=== PATIENT | female | born 1935 | race Caucasian/White ===

== ENCOUNTER → 2016-10-12 | Outpatient (CLI) | payer OTHER ==
[~2016-10-12] MED LIST: ALENSOL; Calcium PO; FOLI1TAB6; FOLI1TAB6 PO; FOLIPOW28; Fish Oil; HYDR500T13; IBUP600T27; METH2.5T3 IJ; METHOTREXATE; METHPOW77; MULTI VIT
[2016-10-12 16:20] LABS: Basophils # (auto) 0 uL; Basophils % (auto) 0.5 % (0.0-2.0); Eosinophils # (auto) 0.3 uL; Eosinophils % (auto) 3.1 % (0.0-7.0); Hematocrit 40.4 % (36.0-46.0); Hemoglobin 12.9 g/dL (12.2-16.2); Lymphocytes # (auto) 2.1 uL; Lymphocytes % (auto) 21.3 % (10.0-50.0); Mean Corpuscular Volume 84.6 fL (80.0-100.0); Monocytes # (auto) 0.9 uL; Monocytes % (auto) 9.2 % (0.0-12.0); Neutrophils # (auto) 6.4 uL; Neutrophils % (auto) 65.9 % (37.0-80.0); Platelet Count (auto) 267 10^3/uL (140-450); Red Cell Distribution Width 14.4 % (11.6-16.0); White Blood Cell 9.7 10^3/uL (4.4-10.8)
== END | disposition home or self-care (01) ==
LOC: LAB 15:49
DX: Z96.649 Presence of unspecified artificial hip joint (principal)
CPT/HCPCS: 36415; 85025; 85049; 85652; 86141

== ENCOUNTER → 2016-11-24 | Outpatient (CLI) | payer OTHER ==
[~2016-11-24] MED LIST changes: +CIPR-217 PO; -METH2.5T3 IJ; +METH2.5T3 OR
[2016-11-24 16:56] LABS: Basophils # (auto) 0 uL; Basophils % (auto) 0.6 % (0.0-2.0); Eosinophils # (auto) 0.2 uL; Eosinophils % (auto) 3.1 % (0.0-7.0); Hematocrit 43.1 % (36.0-46.0); Hemoglobin 14.2 g/dL (12.2-16.2); Lymphocytes # (auto) 2.3 uL; Lymphocytes % (auto) 36.3 % (10.0-50.0); Mean Corpuscular Hemoglobin 27.6 pg (28.0-32.0); Mean Corpuscular Volume 83.6 fL (80.0-100.0); Mean Platelet Volume 8.3 fL (7.4-10.4); Monocytes # (auto) 0.4 uL; Monocytes % (auto) 5.8 % (0.0-12.0); Neutrophils # (auto) 3.4 uL; Neutrophils % (auto) 54.2 % (37.0-80.0); Platelet Count (auto) 207 10^3/uL (140-450); Red Cell Distribution Width 15.4 % (11.6-16.0); White Blood Cell 6.3 10^3/uL (4.4-10.8)
[2016-11-24 17:06] LABS: Albumin 3.7 g/dL (3.4-5.0); Bilirubin, Total 0.5 mg/dL (0.2-1.0); Calcium 8.6 mg/dL (8.5-10.1); Total Protein 7.6 g/dL (6.4-8.2)
[2016-11-24 17:11] LABS: INR 1.05 (0.9-1.15); Partial Thromboplastin Time 26.8 sec (22.64-33.71); Prothrombin Time 10.8 sec (9.37-12.3)
== END | disposition home or self-care (01) ==
LOC: LAB 13:40
PROVIDERS: ATTEND Surgery
DX: Z01.818 Encounter for other preprocedural examination (principal); R79.1 Abnormal coagulation profile
CPT/HCPCS: 36415; 80053; 85025; 85610; 85730

== ENCOUNTER → 2016-11-27 | Day surgery (SDC) | payer OTHER ==
[~2016-11-27] VITALS: Ht 165.1 cm; Wt 48.5 kg
[~2016-11-27] MED LIST changes: -ALENSOL; +BUPIVACAINE HCL 50 ML ONE; +BUPIVACAINE W/ EPINEPH 0.5% MPF 30ML VIAL IJ ONE; -Calcium PO; -FOLI1TAB6; -FOLIPOW28; -Fish Oil; -HYDR500T13; +HYDROmorphone HCL 2 MG/ML VL IV ONE; -IBUP600T27; +KETOROLAC TROMETH 30 MG/ML 1ML VIAL IV ONE; +LIDOCAINE 1% HCL (LOCAL ANESTH.) INJ 20ML MDV ONE; +LIDOCAINE W/ EPINEPHRINE 1 % INJ 30ML ONE; -METHOTREXATE; -METHPOW77; +MIDAZOLAM HCL 1MG/1ML-2 ML VIAL ONE; -MULTI VIT; +ONDANSETRON HCL 4 MG/2 ML VIAL ONE; +PROMETHAZINE HCL 25 MG/ML 1ML IM ONE; +PROPOFOL 10 MG/ML 20 ML IV ONE; +fentaNYL CITRATE 100 MCG/2 ML VL ONE
[2016-11-27 08:51] VITALS: BP 127/70
== END | disposition home or self-care (01) ==
LOC: SUR 05:58
PROVIDERS: ATTEND Surgery
DX: T84.090A Other mechanical complication of internal right hip prosthesis, initial encounter (principal); M06.9 Rheumatoid arthritis, unspecified; J44.9 Chronic obstructive pulmonary disease, unspecified
CPT/HCPCS: 36590; J2001; J2250; J2405; J2704; J3010; J3490

== ENCOUNTER → 2017-02-09 | Outpatient (CLI) | payer OTHER ==
[~2017-02-09] MED LIST changes: -BUPIVACAINE HCL 50 ML ONE; -BUPIVACAINE W/ EPINEPH 0.5% MPF 30ML VIAL IJ ONE; -HYDROmorphone HCL 2 MG/ML VL IV ONE; -KETOROLAC TROMETH 30 MG/ML 1ML VIAL IV ONE; -LIDOCAINE 1% HCL (LOCAL ANESTH.) INJ 20ML MDV ONE; -LIDOCAINE W/ EPINEPHRINE 1 % INJ 30ML ONE; -MIDAZOLAM HCL 1MG/1ML-2 ML VIAL ONE; -ONDANSETRON HCL 4 MG/2 ML VIAL ONE; -PROMETHAZINE HCL 25 MG/ML 1ML IM ONE; -PROPOFOL 10 MG/ML 20 ML IV ONE; -fentaNYL CITRATE 100 MCG/2 ML VL ONE
== END | disposition home or self-care (01) ==
LOC: LAB 10:33
PROVIDERS: ATTEND Internal Medicine
DX: Z12.11 Encounter for screening for malignant neoplasm of colon (principal)
CPT/HCPCS: 82270

== ENCOUNTER → 2017-04-16 | Outpatient (CLI) | payer OTHER ==
[2017-04-16 11:43] LABS: Basophils # (auto) 0 uL; Basophils % (auto) 0.7 % (0.0-2.0); CONDITION Y; Eosinophils # (auto) 0.4 uL; Eosinophils % (auto) 5.4 % (0.0-7.0); Hematocrit 42.6 % (36.0-46.0); Hemoglobin 14.2 g/dL (12.2-16.2); Lymphocytes # (auto) 1.7 uL; Lymphocytes % (auto) 25.5 % (10.0-50.0); Mean Corpuscular Hemoglobin 31.9 pg (28.0-32.0); Mean Corpuscular Hgb Conc. 33.3 g/dL (32.0-36.0); Mean Corpuscular Volume 95.9 fL (80.0-100.0); Mean Platelet Volume 7.2 fL (7.4-10.4); Monocytes # (auto) 0.9 uL; Monocytes % (auto) 13.8 % (0.0-12.0); Neutrophils # (auto) 3.6 uL; Neutrophils % (auto) 54.6 % (37.0-80.0); Platelet Count (auto) 206 10^3/uL (140-450); Red Cell Distribution Width 16.1 % (11.6-16.0); White Blood Cell 6.6 10^3/uL (4.4-10.8)
[2017-04-16 12:06] LABS: Albumin 3.7 g/dL (3.4-5.0); BUN/Creatinine Ratio 20.8; Bilirubin, Total 0.7 mg/dL (0.2-1.0); Calcium 9.2 mg/dL (8.5-10.1); Potassium 4.2 mmol/L (3.5-5.1)
== END | disposition home or self-care (01) ==
LOC: LAB 11:25
DX: M06.9 Rheumatoid arthritis, unspecified (principal); M25.50 Pain in unspecified joint; D64.9 Anemia, unspecified; I10 Essential (primary) hypertension
CPT/HCPCS: 36415; 80053; 85025; 85652; 86141

== ENCOUNTER → 2017-07-14 | Outpatient (CLI) | payer OTHER ==
[2017-07-14 12:07] LABS: Basophils # (auto) 0 uL; Basophils % (auto) 0.3 % (0.0-2.0); Eosinophils # (auto) 0.3 uL; Eosinophils % (auto) 3.8 % (0.0-7.0); Hematocrit 39.1 % (36.0-46.0); Hemoglobin 13.4 g/dL (12.2-16.2); Lymphocytes # (auto) 1.8 uL; Lymphocytes % (auto) 20.6 % (10.0-50.0); Mean Corpuscular Hemoglobin 30.7 pg (28.0-32.0); Mean Corpuscular Hgb Conc. 34.3 g/dL (32.0-36.0); Mean Corpuscular Volume 89.3 fL (80.0-100.0); Mean Platelet Volume 6.1 fL (6.9-10.8); Monocytes # (auto) 0.6 uL; Monocytes % (auto) 6.7 % (0.0-12.0); Neutrophils # (auto) 5.9 uL; Neutrophils % (auto) 68.6 % (37.0-80.0); Nucleated Red Blood Cells % 0.1 %; Platelet Count (auto) 304 10^3/uL (140-450); Red Cell Distribution Width 14.8 % (11.8-14.3); White Blood Cell 8.6 10^3/uL (4.4-10.8)
[2017-07-14 12:34] LABS: Albumin 2.9 g/dL (3.4-5.0); Bilirubin, Total 0.5 mg/dL (0.2-1.0); Calcium 8.2 mg/dL (8.5-10.1); Potassium 4.3 mmol/L (3.5-5.1); Total Protein 7.7 g/dL (6.4-8.2)
== END | disposition home or self-care (01) ==
LOC: LAB 11:31
DX: I10 Essential (primary) hypertension (principal); D64.9 Anemia, unspecified; M06.9 Rheumatoid arthritis, unspecified; M25.50 Pain in unspecified joint; E78.00 Pure hypercholesterolemia, unspecified; I70.0 Atherosclerosis of aorta; Z79.899 Other long term (current) drug therapy
CPT/HCPCS: 36415; 80053; 85025; 85652; 86141

== ENCOUNTER → 2017-08-16 | Outpatient (CLI) | payer OTHER ==
[2017-08-16 10:05] LABS: Basophils # (auto) 0 uL; Basophils % (auto) 0.6 % (0.0-2.0); Eosinophils # (auto) 0.2 uL; Eosinophils % (auto) 2.3 % (0.0-7.0); Hematocrit 43.3 % (36.0-46.0); Hemoglobin 14.5 g/dL (12.2-16.2); Lymphocytes % (auto) 26.8 % (10.0-50.0); Mean Corpuscular Hemoglobin 30.3 pg (28.0-32.0); Mean Corpuscular Hgb Conc. 33.4 g/dL (32.0-36.0); Mean Corpuscular Volume 90.6 fL (80.0-100.0); Mean Platelet Volume 6.7 fL (6.9-10.8); Monocytes # (auto) 0.5 uL; Monocytes % (auto) 6.4 % (0.0-12.0); Neutrophils # (auto) 4.7 uL; Neutrophils % (auto) 63.9 % (37.0-80.0); Nucleated Red Blood Cells % 0.1 %; Platelet Count (auto) 213 10^3/uL (140-450); Red Cell Distribution Width 16.7 % (11.8-14.3); White Blood Cell 7.4 10^3/uL (4.4-10.8)
[2017-08-16 10:37] LABS: Albumin 3.3 g/dL (3.4-5.0); BUN/Creatinine Ratio 13.1; Bilirubin, Total 0.7 mg/dL (0.2-1.0); Calcium 8.3 mg/dL (8.5-10.1); Potassium 3.8 mmol/L (3.5-5.1); Total Protein 7.4 g/dL (6.4-8.2)
== END | disposition home or self-care (01) ==
LOC: LAB 09:21
PROVIDERS: ATTEND Internal Medicine
DX: I10 Essential (primary) hypertension (principal); M06.9 Rheumatoid arthritis, unspecified; Z79.899 Other long term (current) drug therapy
CPT/HCPCS: 36415; 80053; 80061; 82306; 84443; 85025

== ENCOUNTER 2017-12-18 09:55 | Inpatient (IN) | payer OTHER ==
[~2017-12-18] VITALS: Ht 157.5 cm; Wt 44.9 kg
[2017-12-18 11:12] LABS: Basophils # (auto) 0.1 uL; Basophils % (auto) 0.7 % (0.0-2.0); Eosinophils # (auto) 0.1 uL; Eosinophils % (auto) 1.4 % (0.0-7.0); Hematocrit 41.8 % (36.0-46.0); Lymphocytes # (auto) 1.4 uL; Lymphocytes % (auto) 14.4 % (10.0-50.0); Mean Corpuscular Hemoglobin 29.9 pg (28.0-32.0); Mean Corpuscular Hgb Conc. 33.4 g/dL (32.0-36.0); Mean Corpuscular Volume 89.4 fL (80.0-100.0); Monocytes # (auto) 0.9 uL; Neutrophils # (auto) 7.3 uL; Neutrophils % (auto) 74.5 % (37.0-80.0); Platelet Count (auto) 362 10^3/uL (140-450); Red Blood Cells 4.67 10^6/uL (4.0-5.20); Red Cell Distribution Width 16.1 % (11.8-14.3); White Blood Cell 9.8 10^3/uL (4.4-10.8)
[2017-12-18 11:31] LABS: Albumin 2.7 g/dL (3.4-5.0); BUN/Creatinine Ratio 24.1; Bilirubin, Total 0.6 mg/dL (0.2-1.0); Calcium 7.7 mg/dL (8.5-10.1); Potassium 3.8 mmol/L (3.5-5.1); Total Protein 7.5 g/dL (6.4-8.2)
[2017-12-18 12:03] LABS: Urine Bacteria NONE SEEN /hpf (None Seen); Urine Blood 1+ /uL (Negative); Urine Specific Gravity 1.014 (1.001-1.035); Urine WBC 34 /hpf (0 - 5)
[2017-12-18] MEDS ORDERED: cefTRIAXone 1GM/10ml IVPUSH 10 ML IV ONE (14:45)
[2017-12-18] MEDS ORDERED: MORPHINE SULFATE 4 MG/ML SYR/VIAL IV PRN (16:30)
[2017-12-18] MEDS ORDERED: ACETAMINOPHEN 325 MG TAB PO PRN (16:30)
[2017-12-18] MEDS ORDERED: DOCUSATE SOD 100 MG CAP PO PRN (16:30)
[2017-12-18] MEDS ORDERED: TEMAZEPAM 15 MG CAP PO PRN (16:30)
[2017-12-18] MEDS ORDERED: METHOTREXATE 2.5 MG TAB PO SCH (16:30)
[2017-12-18] MEDS: FAMOTIDINE 20 MG TAB PO SCH (16:57)
[2017-12-18 17:33] VITALS: BP 166/91
[2017-12-18 17:43] VITALS: BP 166/91
[2017-12-18] MEDS ORDERED: MULT1TAB61 PO (17:56)
[2017-12-18] MEDS ORDERED: ALEN70TA3 PO (17:56)
[2017-12-18] MEDS: FOLIC ACID 1 MG TAB PO SCH (18:12)
[2017-12-18] MEDS: CALCIUM W/VIT D (600MG/400IU) TAB PO SCH (18:12)
[2017-12-18] MEDS: HYDROcodone-ACET 5/325MG TAB PO PRN (20:15)
[2017-12-18] MEDS: SODIUM CHLOR 0.9% PF (SALINE LOCK) 10ML VIAL IV SCH (21:25)
[2017-12-18 22:00] VITALS: BP 125/89
[2017-12-19] MEDS: HYDROcodone-ACET 5/325MG TAB PO PRN ×2 (03:28→22:02)
[2017-12-19] MEDS: ONDANSETRON HCL 4 MG/2 ML VIAL IV PRN ×4 (04:26→22:02)
[2017-12-19 05:01] VITALS: BP 145/82
[2017-12-19] MEDS: SODIUM CHLOR 0.9% PF (SALINE LOCK) 10ML VIAL IV SCH ×3 (05:22→22:01)
[2017-12-19 07:32] LABS: Basophils # (auto) 0 uL; Basophils % (auto) 0.5 % (0.0-2.0); Eosinophils # (auto) 0.1 uL; Eosinophils % (auto) 1.4 % (0.0-7.0); Hematocrit 39.8 % (36.0-46.0); Hemoglobin 13.3 g/dL (12.2-16.2); Lymphocytes # (auto) 1.3 uL; Lymphocytes % (auto) 12.8 % (10.0-50.0); Mean Corpuscular Hemoglobin 29.9 pg (28.0-32.0); Mean Corpuscular Hgb Conc. 33.3 g/dL (32.0-36.0); Mean Corpuscular Volume 89.5 fL (80.0-100.0); Monocytes # (auto) 0.9 uL; Monocytes % (auto) 9.1 % (0.0-12.0); Neutrophils # (auto) 7.5 uL; Neutrophils % (auto) 76.2 % (37.0-80.0); Platelet Count (auto) 323 10^3/uL (140-450); Red Blood Cells 4.44 10^6/uL (4.0-5.20); Red Cell Distribution Width 16.4 % (11.8-14.3); White Blood Cell 9.8 10^3/uL (4.4-10.8)
[2017-12-19 07:47] LABS: Albumin 2.5 g/dL (3.4-5.0); Calcium 8.1 mg/dL (8.5-10.1); Potassium 3.5 mmol/L (3.5-5.1)
[2017-12-19 07:54] LABS: Bilirubin, Total 0.8 mg/dL (0.2-1.0); Total Protein 6.9 g/dL (6.4-8.2)
[2017-12-19 09:00] VITALS: BP 151/80
[2017-12-19] MEDS: VITAMIN E PO SCH (10:00)
[2017-12-19] MEDS: MULTIPLE VITAMIN TAB PO SCH (10:15)
[2017-12-19] MEDS: ZINC SULFATE 220 MG CAP PO SCH (10:15)
[2017-12-19] MEDS: ASCORBIC ACID 500 MG TAB PO SCH (10:15)
[2017-12-19] MEDS: FAMOTIDINE 20 MG TAB PO SCH (10:15)
[2017-12-19] MEDS: CALCIUM W/VIT D (600MG/400IU) TAB PO SCH ×2 (10:15→18:05)
[2017-12-19] MEDS: cefTRIAXone 1GM/10ml IVPUSH 10 ML IV SCH (10:16)
[2017-12-19] MEDS: FOLIC ACID 1 MG TAB PO SCH ×2 (10:16→18:05)
[2017-12-19 13:00] VITALS: BP 148/73
[2017-12-19 17:00] VITALS: BP 137/72
[2017-12-19 22:00] VITALS: BP 128/73
[2017-12-20 05:00] VITALS: BP 117/69
[2017-12-20] MEDS: SODIUM CHLOR 0.9% PF (SALINE LOCK) 10ML VIAL IV SCH ×2 (05:45→14:00)
[2017-12-20] MEDS: ONDANSETRON HCL 4 MG/2 ML VIAL IV PRN (08:23)
[2017-12-20] MEDS: HYDROcodone-ACET 5/325MG TAB PO PRN (08:24)
[2017-12-20 08:38] VITALS: BP 136/77
[2017-12-20] MEDS: VITAMIN E PO SCH (10:00)
[2017-12-20] MEDS: MULTIPLE VITAMIN TAB PO SCH (10:01)
[2017-12-20] MEDS: ASCORBIC ACID 500 MG TAB PO SCH (10:01)
[2017-12-20] MEDS: ZINC SULFATE 220 MG CAP PO SCH (10:01)
[2017-12-20] MEDS: FAMOTIDINE 20 MG TAB PO SCH (10:02)
[2017-12-20] MEDS: cefTRIAXone 1GM/10ml IVPUSH 10 ML IV SCH (10:02)
[2017-12-20] MEDS: FOLIC ACID 1 MG TAB PO SCH (10:02)
[2017-12-20] MEDS: CALCIUM W/VIT D (600MG/400IU) TAB PO SCH (10:02)
== END 2017-12-20 14:00 | disposition home or self-care (01) | DRG 543 ==
LOC: EDUNIT# 09:55 → ER 09:55 → EDBD 09:55 → OVERFLOW 09:56 → EAST 17:23
PROVIDERS: ADMIT Internal Medicine; ATTEND Family Medicine
DX: M48.54XA Collapsed vertebra, not elsewhere classified, thoracic region, initial encounter for fracture (principal); E44.0 Moderate protein-calorie malnutrition; M06.9 Rheumatoid arthritis, unspecified; N39.0 Urinary tract infection, site not specified; E83.51 Hypocalcemia; M84.48XA Pathological fracture, other site, initial encounter for fracture; K80.20 Calculus of gallbladder without cholecystitis without obstruction; W18.39XA Other fall on same level, initial encounter; Z96.641 Presence of right artificial hip joint; M51.36 Other intervertebral disc degeneration, lumbar region; M51.34 Other intervertebral disc degeneration, thoracic region; J40 Bronchitis, not specified as acute or chronic; M81.0 Age-related osteoporosis without current pathological fracture; Z83.3 Family history of diabetes mellitus; Z91.81 History of falling; Z88.1 Allergy status to other antibiotic agents; Z88.2 Allergy status to sulfonamides; Z88.5 Allergy status to narcotic agent; Z79.899 Other long term (current) drug therapy; Y93.89 Activity, other specified; Y92.89 Other specified places as the place of occurrence of the external cause; Y99.8 Other external cause status
CPT/HCPCS: 36415; 71045; 72131; 72192; 80053; 81001; 85025; 87081; 87086; 87088; 87186; 93005; 96374; 97163; J2405

== ENCOUNTER → 2018-03-18 | Outpatient (CLI) | payer OTHER ==
[~2018-03-18] MED LIST changes: +ALEN70TA3 PO; +MULT1TAB61 PO
[2018-03-18 11:13] LABS: Basophils # (auto) 0 uL; Basophils % (auto) 0.6 % (0.0-2.0); Eosinophils # (auto) 0.3 uL; Eosinophils % (auto) 5.6 % (0.0-7.0); Hematocrit 41.7 % (36.0-46.0); Hemoglobin 14.4 g/dL (12.2-16.2); Lymphocytes # (auto) 1.8 uL; Lymphocytes % (auto) 30.6 % (10.0-50.0); Mean Corpuscular Hemoglobin 31.5 pg (28.0-32.0); Mean Corpuscular Hgb Conc. 34.5 g/dL (32.0-36.0); Monocytes # (auto) 0.5 uL; Monocytes % (auto) 7.9 % (0.0-12.0); Neutrophils # (auto) 3.3 uL; Neutrophils % (auto) 55.3 % (37.0-80.0); Nucleated Red Blood Cells % 0.1 %; Platelet Count (auto) 200 10^3/uL (140-450); Red Blood Cells 4.58 10^6/uL (4.0-5.20); Red Cell Distribution Width 13.9 % (11.8-14.3)
[2018-03-18 12:49] LABS: Albumin 3.4 g/dL (3.4-5.0); BUN/Creatinine Ratio 26.4; Bilirubin, Total 0.6 mg/dL (0.2-1.0); CRP High Sensitivity 0.51 mg/dL (< 0.3); Calcium 8.5 mg/dL (8.5-10.1); Potassium 4.1 mmol/L (3.5-5.1); Total Protein 7.8 g/dL (6.4-8.2)
== END | disposition home or self-care (01) ==
LOC: LAB 10:52
PROVIDERS: ATTEND Internal Medicine
DX: M06.9 Rheumatoid arthritis, unspecified (principal); I10 Essential (primary) hypertension
CPT/HCPCS: 36415; 80053; 85025; 85652; 86141

== ENCOUNTER → 2018-08-08 | Outpatient (CLI) | payer OTHER ==
[~2018-08-08] MED LIST changes: -METH2.5T3 OR; +METH2.5T3 PO
[2018-08-08 13:46] LABS: Basophils # (auto) 0 uL; Basophils % (auto) 0.4 % (0.0-2.0); Eosinophils # (auto) 0.2 uL; Eosinophils % (auto) 2.8 % (0.0-7.0); Hematocrit 44.4 % (36.0-46.0); Hemoglobin 15.2 g/dL (12.2-16.2); Lymphocytes # (auto) 1.5 uL; Lymphocytes % (auto) 22.3 % (10.0-50.0); Mean Corpuscular Hemoglobin 31.5 pg (28.0-32.0); Mean Corpuscular Hgb Conc. 34.1 g/dL (32.0-36.0); Mean Corpuscular Volume 92.5 fL (80.0-100.0); Monocytes # (auto) 0.6 uL; Monocytes % (auto) 9.9 % (0.0-12.0); Neutrophils # (auto) 4.2 uL; Neutrophils % (auto) 64.6 % (37.0-80.0); Nucleated Red Blood Cells % 0.1 %; Platelet Count (auto) 196 10^3/uL (140-450); Red Blood Cells 4.81 10^6/uL (4.0-5.20); Red Cell Distribution Width 13.8 % (11.8-14.3); White Blood Cell 6.6 10^3/uL (4.4-10.8)
== END | disposition home or self-care (01) ==
LOC: LAB 11:53
DX: T84.59XD Infection and inflammatory reaction due to other internal joint prosthesis, subsequent encounter (principal); Z96.649 Presence of unspecified artificial hip joint
CPT/HCPCS: 36415; 85025; 85652; 86141

== ENCOUNTER → 2018-11-04 | Outpatient (CLI) | payer OTHER ==
[2018-11-04 10:23] LABS: Basophils # (auto) 0 uL; Basophils % (auto) 0.9 % (0.0-2.0); Eosinophils # (auto) 0.1 uL; Eosinophils % (auto) 2.6 % (0.0-7.0); Hematocrit 40.9 % (36.0-46.0); Hemoglobin 13.9 g/dL (12.2-16.2); Lymphocytes # (auto) 1.4 uL; Mean Corpuscular Hemoglobin 32.1 pg (28.0-32.0); Mean Corpuscular Hgb Conc. 33.8 g/dL (32.0-36.0); Mean Corpuscular Volume 94.9 fL (80.0-100.0); Monocytes # (auto) 0.3 uL; Monocytes % (auto) 5.9 % (0.0-12.0); Neutrophils # (auto) 3.1 uL; Neutrophils % (auto) 62.6 % (37.0-80.0); Platelet Count (auto) 169 10^3/uL (140-450); Red Blood Cells 4.31 10^6/uL (4.0-5.20); Red Cell Distribution Width 15.5 % (11.8-14.3)
[2018-11-04 11:17] LABS: Albumin 3.4 g/dL (3.4-5.0); Calcium 8.5 mg/dL (8.5-10.1); Potassium 4.1 mmol/L (3.5-5.1)
[2018-11-04 11:21] LABS: BUN/Creatinine Ratio 22.2; Bilirubin, Total 0.9 mg/dL (0.2-1.0); Total Protein 7.1 g/dL (6.4-8.2)
== END | disposition home or self-care (01) ==
LOC: LAB 09:04
PROVIDERS: ATTEND Internal Medicine
DX: Z00.00 Encounter for general adult medical examination without abnormal findings (principal); Z12.11 Encounter for screening for malignant neoplasm of colon; I10 Essential (primary) hypertension; M06.9 Rheumatoid arthritis, unspecified
CPT/HCPCS: 36415; 80053; 80061; 82306; 84443; 85025; 85652

== ENCOUNTER → 2019-03-20 | Outpatient (CLI) | payer OTHER ==
[2019-03-20 12:06] LABS: Basophils # (auto) 0.1 uL; Eosinophils # (auto) 0.2 uL; Eosinophils % (auto) 2.4 % (0.0-7.0); Hematocrit 43.8 % (36.0-46.0); Lymphocytes # (auto) 1.7 uL; Lymphocytes % (auto) 23.7 % (10.0-50.0); Mean Corpuscular Hemoglobin 32.2 pg (28.0-32.0); Mean Corpuscular Hgb Conc. 34.2 g/dL (32.0-36.0); Monocytes # (auto) 0.8 uL; Monocytes % (auto) 11.4 % (0.0-12.0); Neutrophils # (auto) 4.4 uL; Neutrophils % (auto) 61.5 % (37.0-80.0); Nucleated Red Blood Cells % 0.1 %; Platelet Count (auto) 191 10^3/uL (140-450); Red Blood Cells 4.66 10^6/uL (4.0-5.20); Red Cell Distribution Width 13.8 % (11.8-14.3); White Blood Cell 7.2 10^3/uL (4.4-10.8)
[2019-03-20 12:54] LABS: Potassium 4.1 mmol/L (3.5-5.1)
[2019-03-20 13:07] LABS: Albumin 3.6 g/dL (3.4-5.0); BUN/Creatinine Ratio 23.2; Bilirubin, Total 0.9 mg/dL (0.2-1.0); Calcium 8.7 mg/dL (8.5-10.1); Total Protein 7.7 g/dL (6.4-8.2)
== END | disposition home or self-care (01) ==
LOC: LAB 11:31
PROVIDERS: ATTEND Internal Medicine Rheumatology
DX: M06.9 Rheumatoid arthritis, unspecified (principal)
CPT/HCPCS: 36415; 80053; 85025

== ENCOUNTER → 2019-04-07 | Outpatient (CLI) | payer OTHER | END | disposition home or self-care (01) | LOC: LAB 06:47 | PROVIDERS: ATTEND Nurse Practitioner Family | DX: N39.0 Urinary tract infection, site not specified (principal) | CPT/HCPCS: 87086; 87088; 87186 ==

== ENCOUNTER → 2019-05-08 | Outpatient (CLI) | payer OTHER | END | disposition home or self-care (01) | LOC: LAB 11:59 | PROVIDERS: ATTEND Internal Medicine | DX: R30.0 Dysuria (principal) | CPT/HCPCS: 87086 ==

== ENCOUNTER → 2020-04-19 | Outpatient (CLI) | payer OTHER ==
[~2020-04-19] MED LIST changes: -CIPR-217 PO; +CIPR500T4 PO; +METH2.5T PO; -METH2.5T3 PO
[2020-04-19 11:03] LABS: Basophils # (auto) 0 10 ^3/uL (0-0.2); Basophils % (auto) 0.6 % (0.0-2.0); Eosinophils # (auto) 0.1 10 ^3/uL (0-0.8); Eosinophils % (auto) 2.3 % (0.0-7.0); Hematocrit 45.2 % (36.0-46.0); Hemoglobin 15.1 g/dL (12.2-16.2); Lymphocytes # (auto) 1.2 10 ^3/uL (0.4-5.4); Lymphocytes % (auto) 22.4 % (10.0-50.0); Mean Corpuscular Hemoglobin 30.3 pg (28.0-32.0); Mean Corpuscular Hgb Conc. 33.5 g/dL (32.0-36.0); Mean Corpuscular Volume 90.2 fL (80.0-100.0); Monocytes # (auto) 0.6 10 ^3/uL (0-1.3); Monocytes % (auto) 10.6 % (0.0-12.0); Neutrophils # (auto) 3.4 10 ^3/uL (1.6-8.6); Neutrophils % (auto) 64.1 % (37.0-80.0); Nucleated Red Blood Cells % 0.1 %; Platelet Count (auto) 208 10^3/uL (140-450); Red Blood Cells 5.01 10^6/uL (4.0-5.20); White Blood Cell 5.4 10^3/uL (4.4-10.8)
[2020-04-19 11:37] LABS: Albumin 3.3 g/dL (3.4-5.0); Potassium 4.1 mmol/L (3.5-5.1)
[2020-04-19 11:50] LABS: BUN/Creatinine Ratio 28.6; CRP High Sensitivity 1.97 mg/dL (< 0.3); Calcium 8.8 mg/dL (8.5-10.1); Total Protein 7.6 g/dL (6.4-8.2)
== END | disposition home or self-care (01) ==
LOC: LAB 10:16
PROVIDERS: ATTEND Internal Medicine
DX: I10 Essential (primary) hypertension (principal); J44.9 Chronic obstructive pulmonary disease, unspecified; M06.9 Rheumatoid arthritis, unspecified; Z68.1 Body mass index [BMI] 19.9 or less, adult
CPT/HCPCS: 36415; 80053; 80061; 84443; 85025; 85652; 86141

== ENCOUNTER → 2021-11-24 | Outpatient (CLI) | payer OTHER ==
[2021-11-24 14:52] LABS: Basophils # (auto) 0.1 10 ^3/uL (0-0.2); Basophils % (auto) 1.3 % (0.0-2.0); Eosinophils # (auto) 0.2 10 ^3/uL (0-0.8); Eosinophils % (auto) 4.4 % (0.0-7.0); Hematocrit 36.4 % (36.0-46.0); Hemoglobin 12.1 g/dL (12.2-16.2); Lymphocytes # (auto) 1.2 10 ^3/uL (0.4-5.4); Lymphocytes % (auto) 23.7 % (10.0-50.0); Mean Corpuscular Hemoglobin 29.3 pg (28.0-32.0); Mean Corpuscular Hgb Conc. 33.2 g/dL (32.0-36.0); Mean Corpuscular Volume 88.1 fL (80.0-100.0); Monocytes # (auto) 0.4 10 ^3/uL (0-1.3); Monocytes % (auto) 8.4 % (0.0-12.0); Neutrophils # (auto) 3.1 10 ^3/uL (1.6-8.6); Neutrophils % (auto) 62.2 % (37.0-80.0); Red Blood Cells 4.13 10^6/uL (4.0-5.20); Red Cell Distribution Width 14.7 % (11.8-14.3); White Blood Cell 4.9 10^3/uL (4.4-10.8)
[2021-11-24 18:59] LABS: BUN/Creatinine Ratio 19.6; Bilirubin, Total 0.8 mg/dL (0.2-1.0); Calcium 8.1 mg/dL (8.5-10.1); Total Protein 6.3 g/dL (6.4-8.2)
[2021-11-24 19:00] LABS: Albumin 2.6 g/dL (3.4-5.0); CRP High Sensitivity 2.16 mg/dL (< 0.3)
== END | disposition home or self-care (01) ==
LOC: LAB 14:35
PROVIDERS: ATTEND Podiatrist
DX: S71.029A Laceration with foreign body, unspecified hip, initial encounter (principal); L03.90 Cellulitis, unspecified; X58.XXXA Exposure to other specified factors, initial encounter; Y93.89 Activity, other specified; Y92.89 Other specified places as the place of occurrence of the external cause; Y99.8 Other external cause status
CPT/HCPCS: 36415; 80053; 82550; 85025; 85652; 86141

== ENCOUNTER → 2022-02-05 | Outpatient (CLI) | payer OTHER | END | disposition home or self-care (01) | LOC: LAB 12:56 | PROVIDERS: ATTEND Specialist | DX: M86.9 Osteomyelitis, unspecified (principal) | CPT/HCPCS: 87205 ==

== ENCOUNTER 2022-03-25 07:02 | Inpatient (IN) | payer OTHER ==
[~2022-03-25] VITALS: Ht 152.4 cm; Wt 57.0 kg
[2022-03-25 08:05] LABS: Basophils # (auto) 0 10 ^3/uL (0-0.2); Basophils % (auto) 0.4 % (0.0-2.0); Eosinophils # (auto) 0.2 10 ^3/uL (0-0.8); Eosinophils % (auto) 3.3 % (0.0-7.0); Hematocrit 43.3 % (36.0-46.0); Hemoglobin 14.1 g/dL (12.2-16.2); Lymphocytes # (auto) 1.6 10 ^3/uL (0.4-5.4); Lymphocytes % (auto) 21.9 % (10.0-50.0); Mean Corpuscular Hemoglobin 28.4 pg (28.0-32.0); Mean Corpuscular Hgb Conc. 32.6 g/dL (32.0-36.0); Mean Corpuscular Volume 87.1 fL (80.0-100.0); Monocytes # (auto) 0.6 10 ^3/uL (0-1.3); Monocytes % (auto) 7.7 % (0.0-12.0); Neutrophils # (auto) 4.9 10 ^3/uL (1.6-8.6); Neutrophils % (auto) 66.7 % (37.0-80.0); Nucleated Red Blood Cells % 0.1 %; Red Blood Cells 4.98 10^6/uL (4.0-5.20); White Blood Cell 7.4 10^3/uL (4.4-10.8)
[2022-03-25 08:18] LABS: Albumin 3.1 g/dL (3.4-5.0); Calcium 8.8 mg/dL (8.5-10.1); Magnesium 2.5 mg/dL (1.6-2.6); Potassium 4.3 mmol/L (3.5-5.1)
[2022-03-25 08:23] LABS: Bilirubin, Total 0.5 mg/dL (0.2-1.0); Total Protein 7.4 g/dL (6.4-8.2)
[2022-03-25 08:34] LABS: INR 1.19 (0.9-1.15); Partial Thromboplastin Time 27.9 sec (23.6-33.0)
[2022-03-25 10:11] LABS: Urine Bacteria NONE SEEN /hpf (None Seen); Urine Blood Negative /uL (Negative); Urine Specific Gravity 1.009 (1.001-1.035); Urine WBC 13 /hpf (0 - 5)
[2022-03-25] MEDS ORDERED: cefTRIAXone 1GM/50ML D5W 50 ML IV ONE (10:30)
[2022-03-25] MEDS ORDERED: ACETAMINOPHEN 325 MG TAB PO PRN (11:00)
[2022-03-25] MEDS ORDERED: DOCUSATE SOD 100 MG CAP PO PRN (11:00)
[2022-03-25] MEDS ORDERED: ONDANSETRON HCL 4 MG/2 ML VIAL IV PRN (11:00)
[2022-03-25] MEDS ORDERED: NITROGLYCERIN 0.4 MG SL TAB SL PRN (11:00)
[2022-03-25] MEDS: SOD CHL 0.45% 1,000 ML IV SCH (12:02)
[2022-03-25 18:34] VITALS: BP 146/81
[2022-03-25 21:37] VITALS: BP 144/79
[2022-03-26] VITALS (7 sets, daily range): BP systolic 133–187; BP diastolic 61–87
[2022-03-26] MEDS ORDERED: PNEUMOCOCCAL VACC POLYS 25 MCG/0.5 ML VIAL IM ONE (02:15)
[2022-03-26] MEDS ORDERED: POTA10TA32 PO (02:18)
[2022-03-26] MEDS ORDERED: MEMA7CAP OR (02:18)
[2022-03-26] MEDS ORDERED: DOXY100C2 PO (02:18)
[2022-03-26] MEDS: SOD CHL 0.45% 1,000 ML IV SCH (05:35)
[2022-03-26] MEDS ORDERED: cefTRIAXone 1GM/50ML D5W 50 ML IV SCH (10:00)
== END 2022-03-26 20:40 | disposition home health service (06) | DRG 312 ==
LOC: ER 07:02 → TELE 10:55 → TELE-CENTR 18:02
PROVIDERS: ADMIT Family Medicine; ATTEND Internal Medicine
DX: R55 Syncope and collapse (principal); N39.0 Urinary tract infection, site not specified; E46 Unspecified protein-calorie malnutrition; M48.52XA Collapsed vertebra, not elsewhere classified, cervical region, initial encounter for fracture; F02.80 Dementia in other diseases classified elsewhere, unspecified severity, without behavioral disturbance, psychotic disturbance, mood disturbance, and anxiety; G30.9 Alzheimer's disease, unspecified; W18.39XA Other fall on same level, initial encounter; I49.1 Atrial premature depolarization; M06.9 Rheumatoid arthritis, unspecified; Z20.822 Contact with and (suspected) exposure to COVID-19; M48.02 Spinal stenosis, cervical region; M50.30 Other cervical disc degeneration, unspecified cervical region; M81.0 Age-related osteoporosis without current pathological fracture; R29.6 Repeated falls; R62.7 Adult failure to thrive; S00.83XA Contusion of other part of head, initial encounter; Z82.0 Family history of epilepsy and other diseases of the nervous system; Z83.3 Family history of diabetes mellitus; Y93.89 Activity, other specified; Z68.24 Body mass index [BMI] 24.0-24.9, adult; Y92.098 Other place in other non-institutional residence as the place of occurrence of the external cause; Y99.8 Other external cause status
CPT/HCPCS: 36415; 70450; 70486; 71045; 72125; 72170; 80053; 81001; 83605; 83735; 83880; 84484; 85025; 85610; 85730; 87081; 87086; 93005; 93306; 93886; 96365; G0378; J0696

== ENCOUNTER 2022-06-07 16:40 | Emergency (ER) | payer OTHER ==
[~2022-06-07] VITALS: Ht 152.4 cm; Wt 38.0 kg
[~2022-06-07 16:40] MED LIST changes: +DOXY100C2 PO; +MEMA7CAP OR; +POTA10TA32 PO
[2022-06-07 17:40] LABS: Basophils # (auto) 0 10 ^3/uL (0-0.2); Basophils % (auto) 0.7 % (0.0-2.0); Eosinophils # (auto) 0.2 10 ^3/uL (0-0.8); Eosinophils % (auto) 3.2 % (0.0-7.0); Hematocrit 44.2 % (36.0-46.0); Hemoglobin 14.4 g/dL (12.2-16.2); Lymphocytes # (auto) 1.2 10 ^3/uL (0.4-5.4); Lymphocytes % (auto) 20.6 % (10.0-50.0); Mean Corpuscular Hemoglobin 28.4 pg (28.0-32.0); Mean Corpuscular Hgb Conc. 32.4 g/dL (32.0-36.0); Mean Corpuscular Volume 87.6 fL (80.0-100.0); Monocytes # (auto) 0.6 10 ^3/uL (0-1.3); Monocytes % (auto) 10.3 % (0.0-12.0); Neutrophils # (auto) 3.7 10 ^3/uL (1.6-8.6); Neutrophils % (auto) 65.2 % (37.0-80.0); Nucleated Red Blood Cells % 0.1 %; Red Blood Cells 5.05 10^6/uL (4.0-5.20); Red Cell Distribution Width 14.9 % (11.8-14.3); White Blood Cell 5.7 10^3/uL (4.4-10.8)
[2022-06-07 17:57] LABS: Albumin 3.3 g/dL (3.4-5.0); Calcium 8.5 mg/dL (8.5-10.1); Potassium 4.3 mmol/L (3.5-5.1)
[2022-06-07 18:00] LABS: BUN/Creatinine Ratio 16.2; Bilirubin, Total 0.8 mg/dL (0.2-1.0); Total Protein 7.1 g/dL (6.4-8.2)
[2022-06-07 19:10] VITALS: BP 112/61
== END 2022-06-07 19:08 | disposition home or self-care (01) ==
LOC: ER 16:40
DX: R53.1 Weakness (principal); M19.90 Unspecified osteoarthritis, unspecified site; Z88.1 Allergy status to other antibiotic agents; Z88.2 Allergy status to sulfonamides; W19.XXXA Unspecified fall, initial encounter; Y93.89 Activity, other specified; Y92.89 Other specified places as the place of occurrence of the external cause; Y99.8 Other external cause status
CPT/HCPCS: 36415; 80053; 85025

== ENCOUNTER 2022-06-08 15:45 | Inpatient (IN) | payer OTHER ==
[~2022-06-08] VITALS: Ht 152.4 cm; Wt 43.1 kg
[2022-06-08 18:08] LABS: Basophils # (auto) 0 10 ^3/uL (0-0.2); Basophils % (auto) 0.5 % (0.0-2.0); Eosinophils # (auto) 0.1 10 ^3/uL (0-0.8); Eosinophils % (auto) 1.2 % (0.0-7.0); Hematocrit 45.5 % (36.0-46.0); Hemoglobin 14.7 g/dL (12.2-16.2); Lymphocytes % (auto) 16.8 % (10.0-50.0); Mean Corpuscular Hemoglobin 28.3 pg (28.0-32.0); Mean Corpuscular Hgb Conc. 32.3 g/dL (32.0-36.0); Mean Corpuscular Volume 87.5 fL (80.0-100.0); Monocytes # (auto) 0.4 10 ^3/uL (0-1.3); Monocytes % (auto) 6.7 % (0.0-12.0); Neutrophils # (auto) 4.4 10 ^3/uL (1.6-8.6); Neutrophils % (auto) 74.8 % (37.0-80.0); Nucleated Red Blood Cells % 0.1 %; Red Cell Distribution Width 14.8 % (11.8-14.3); White Blood Cell 5.9 10^3/uL (4.4-10.8)
[2022-06-08 18:25] LABS: Albumin 3.3 g/dL (3.4-5.0); BUN/Creatinine Ratio 19.6; Calcium 8.6 mg/dL (8.5-10.1); Magnesium 2.4 mg/dL (1.6-2.6); Potassium 4.2 mmol/L (3.5-5.1)
[2022-06-08 18:27] LABS: Bilirubin, Total 1.7 mg/dL (0.2-1.0); Total Protein 7.6 g/dL (6.4-8.2)
[2022-06-08] MEDS ORDERED: ACETAMINOPHEN 325 MG TAB PO PRN (23:00)
[2022-06-08] MEDS ORDERED: MORPHINE SULFATE INJ 2 MG/ml SYRG IV PRN (23:00)
[2022-06-08] MEDS ORDERED: ONDANSETRON HCL 4 MG/2 ML VIAL IV PRN (23:00)
[2022-06-08] MEDS ORDERED: DOCUSATE SOD 100 MG CAP PO PRN (23:00)
[2022-06-08] MEDS ORDERED: NITROGLYCERIN 0.4 MG SL TAB SL PRN (23:00)
[2022-06-08] MEDS ORDERED: HYDROcodone-ACET 5/325MG TAB PO PRN (23:00)
[2022-06-09] MEDS ORDERED: SODIUM CHLORIDE 0.9% 1,000 ML IV ONE
[2022-06-09 04:55] LABS: Basophils # (auto) 0 10 ^3/uL (0-0.2); Basophils % (auto) 0.5 % (0.0-2.0); Eosinophils # (auto) 0.2 10 ^3/uL (0-0.8); Eosinophils % (auto) 3.9 % (0.0-7.0); Hematocrit 36.8 % (36.0-46.0); Hemoglobin 12.4 g/dL (12.2-16.2); Lymphocytes # (auto) 1.4 10 ^3/uL (0.4-5.4); Lymphocytes % (auto) 27.1 % (10.0-50.0); Mean Corpuscular Hemoglobin 29.1 pg (28.0-32.0); Mean Corpuscular Hgb Conc. 33.8 g/dL (32.0-36.0); Mean Corpuscular Volume 86.2 fL (80.0-100.0); Monocytes # (auto) 0.4 10 ^3/uL (0-1.3); Monocytes % (auto) 8.4 % (0.0-12.0); Neutrophils % (auto) 60.1 % (37.0-80.0); Nucleated Red Blood Cells % 0.1 %; Red Blood Cells 4.27 10^6/uL (4.0-5.20); Red Cell Distribution Width 14.5 % (11.8-14.3)
[2022-06-09 05:08] LABS: INR 1.1 (0.9-1.15); Partial Thromboplastin Time 28.6 sec (24.6-33.4)
[2022-06-09 05:11] LABS: Potassium 3.5 mmol/L (3.5-5.1)
[2022-06-09 05:22] LABS: Albumin 2.8 g/dL (3.4-5.0); BUN/Creatinine Ratio 28.6; Bilirubin, Total 1.6 mg/dL (0.2-1.0); Calcium 7.6 mg/dL (8.5-10.1); Total Protein 5.8 g/dL (6.4-8.2)
[2022-06-09] MEDS: SODIUM CHLOR 0.9% PF (SALINE LOCK) 10ML VIAL/SYR IV SCH ×3 (06:00→22:00)
[2022-06-09] MEDS: MEMANTINE 7 MG PO SCH ×2 (10:28→22:00)
[2022-06-09 18:47] VITALS: BP 128/85
[2022-06-09 20:00] VITALS: BP 117/62
[2022-06-09 22:00] VITALS: BP 117/62
[2022-06-10 05:00] VITALS: BP 121/51
[2022-06-10] MEDS: SODIUM CHLOR 0.9% PF (SALINE LOCK) 10ML VIAL/SYR IV SCH ×2 (06:00→14:12)
[2022-06-10 08:58] VITALS: BP 146/75
[2022-06-10] MEDS: MEMANTINE 7 MG PO SCH ×2 (10:00→22:00)
[2022-06-10 13:00] VITALS: BP 118/55
[2022-06-10 16:55] VITALS: BP 126/61
[2022-06-11 01:03] LABS: INR 1.06 (0.9-1.15)
[2022-06-11 02:07] LABS: Folate (Folic Acid) 18.02 ng/mL (5.38-24)
[2022-06-11 05:00] VITALS: BP 113/66
[2022-06-11] MEDS: SODIUM CHLOR 0.9% PF (SALINE LOCK) 10ML VIAL/SYR IV SCH (05:23)
[2022-06-11] MEDS: Ensure HIGH Protein Vanilla 8oz Bottle PO SCH ×2 (08:00→12:00)
[2022-06-11 09:00] VITALS: BP 149/75
[2022-06-11] MEDS: MEMANTINE 7 MG PO SCH (10:00)
[2022-06-11 13:00] VITALS: BP 121/62
[2022-06-11 16:50] VITALS: BP 113/56
== END 2022-06-11 19:25 | disposition home health service (06) | DRG 536 ==
LOC: ER 15:45 → TELE 23:02 → TELE-WESTW 06-09 18:00 → WEST WING 06-11 11:02
PROVIDERS: ADMIT Nurse Practitioner Family; ATTEND Internal Medicine Nephrology
PROC: 4A10X4Z Monitoring of Central Nervous Electrical Activity, External Approach (ICD-10-PCS; principal; 2022-06-11)
DX: S32.591A Other specified fracture of right pubis, initial encounter for closed fracture (principal); G91.0 Communicating hydrocephalus; F05 Delirium due to known physiological condition; F02.80 Dementia in other diseases classified elsewhere, unspecified severity, without behavioral disturbance, psychotic disturbance, mood disturbance, and anxiety; W19.XXXA Unspecified fall, initial encounter; W18.30XA Fall on same level, unspecified, initial encounter; R55 Syncope and collapse; E86.0 Dehydration; J44.9 Chronic obstructive pulmonary disease, unspecified; M06.9 Rheumatoid arthritis, unspecified; M41.9 Scoliosis, unspecified; R29.6 Repeated falls; S00.03XA Contusion of scalp, initial encounter; M81.0 Age-related osteoporosis without current pathological fracture; Z20.822 Contact with and (suspected) exposure to COVID-19; F17.200 Nicotine dependence, unspecified, uncomplicated; Z88.8 Allergy status to other drugs, medicaments and biological substances; Z88.5 Allergy status to narcotic agent; Z88.2 Allergy status to sulfonamides; Z83.3 Family history of diabetes mellitus; Z79.899 Other long term (current) drug therapy; Z82.0 Family history of epilepsy and other diseases of the nervous system; Z80.3 Family history of malignant neoplasm of breast
CPT/HCPCS: 36415; 70450; 71045; 72125; 72170; 72192; 73700; 80053; 82607; 82746; 83735; 84443; 84484; 85025; 85610; 85730; 95819; 96360; 97163; G0378

== ENCOUNTER 2022-06-26 15:18 | Inpatient (IN) | payer OTHER ==
[~2022-06-26] VITALS: Ht 162.6 cm; Wt 51.1 kg
[~2022-06-26 15:18] MED LIST changes: -CIPR500T4 PO; -DOXY100C2 PO; -FOLI1TAB6 PO; -POTA10TA32 PO
[2022-06-26 15:49] LABS: Basophils # (auto) 0 10 ^3/uL (0-0.2); Basophils % (auto) 0.3 % (0.0-2.0); Eosinophils # (auto) 0 10 ^3/uL (0-0.8); Eosinophils % (auto) 0.2 % (0.0-7.0); Hemoglobin 13.4 g/dL (12.2-16.2); Lymphocytes # (auto) 0.8 10 ^3/uL (0.4-5.4); Lymphocytes % (auto) 5.5 % (10.0-50.0); Mean Corpuscular Hemoglobin 28.3 pg (28.0-32.0); Mean Corpuscular Hgb Conc. 32.6 g/dL (32.0-36.0); Mean Corpuscular Volume 86.8 fL (80.0-100.0); Monocytes # (auto) 1.1 10 ^3/uL (0-1.3); Monocytes % (auto) 7.8 % (0.0-12.0); Neutrophils % (auto) 86.2 % (37.0-80.0); Nucleated Red Blood Cells % 0.1 %; Red Blood Cells 4.72 10^6/uL (4.0-5.20); Red Cell Distribution Width 14.8 % (11.8-14.3); White Blood Cell 13.9 10^3/uL (4.4-10.8)
[2022-06-26] MEDS ORDERED: VANCOMYCIN 1GM/250ML 250 ML IV ONE (16:00)
[2022-06-26] MEDS ORDERED: cefEPIME 1gm INJ VIAL IM ONE (16:00)
[2022-06-26] MEDS ORDERED: SODIUM CHLORIDE 0.9% 2,000 ML IV ONE (16:00)
[2022-06-26 16:04] LABS: Albumin 2.7 g/dL (3.4-5.0); Calcium 7.8 mg/dL (8.5-10.1); Magnesium 2.3 mg/dL (1.6-2.6); Potassium 4.9 mmol/L (3.5-5.1)
[2022-06-26 16:07] LABS: Bilirubin, Total 1.6 mg/dL (0.2-1.0); Total Protein 6.3 g/dL (6.4-8.2)
[2022-06-26] MEDS ORDERED: CEFEPIME 1GM/ 50ML 50 ML IV ONE (16:20)
[2022-06-26 17:19] LABS: Urine Bacteria FEW /hpf (None Seen); Urine Blood TRACE /uL (Negative); Urine Mucus FEW (None Seen); Urine Specific Gravity 1.014 (1.001-1.035); Urine WBC 23 /hpf (0 - 5)
[2022-06-26] MEDS ORDERED: SODIUM CHLORIDE 0.9% 1,000 ML IV ONE (20:15)
[2022-06-26] MEDS ORDERED: AZITHROMYCIN 500MG/ 250ML 250 ML IV ONE (20:45)
[2022-06-26] MEDS ORDERED: ACETAMINOPHEN 325 MG TAB PO PRN (20:45)
[2022-06-26] MEDS ORDERED: DOCUSATE SOD 100 MG CAP PO PRN (20:45)
[2022-06-26] MEDS ORDERED: ALBUMIN 25% 100 ML IV ONE (20:45)
[2022-06-26] MEDS ORDERED: HYDROcodone-ACET 5/325MG TAB PO PRN (20:45)
[2022-06-26] MEDS ORDERED: ONDANSETRON HCL 4 MG/2 ML VIAL IV PRN (20:45)
[2022-06-26] MEDS ORDERED: MORPHINE SULFATE INJ 2 MG/ml SYRG IV PRN (22:00)
[2022-06-26] MEDS ORDERED: NITROGLYCERIN 0.4 MG SL TAB SL PRN (22:00)
[2022-06-27] VITALS (7 sets, daily range): BP systolic 100–155; BP diastolic 50–75
[2022-06-27] MEDS: SODIUM CHLORIDE 0.9% 1,000 ML IV SCH ×2 (06:43→15:38)
[2022-06-27 07:38] LABS: Basophils # (auto) 0 10 ^3/uL (0-0.2); Basophils % (auto) 0.2 % (0.0-2.0); Eosinophils # (auto) 0.2 10 ^3/uL (0-0.8); Eosinophils % (auto) 2.5 % (0.0-7.0); Hematocrit 36.2 % (36.0-46.0); Hemoglobin 11.9 g/dL (12.2-16.2); Lymphocytes # (auto) 0.9 10 ^3/uL (0.4-5.4); Lymphocytes % (auto) 9.1 % (10.0-50.0); Mean Corpuscular Hemoglobin 28.8 pg (28.0-32.0); Mean Corpuscular Volume 87.4 fL (80.0-100.0); Monocytes # (auto) 0.7 10 ^3/uL (0-1.3); Monocytes % (auto) 6.9 % (0.0-12.0); Neutrophils # (auto) 7.9 10 ^3/uL (1.6-8.6); Neutrophils % (auto) 81.3 % (37.0-80.0); Red Blood Cells 4.14 10^6/uL (4.0-5.20); Red Cell Distribution Width 14.6 % (11.8-14.3); White Blood Cell 9.7 10^3/uL (4.4-10.8)
[2022-06-27] MEDS ORDERED: PNEUMOCOCCAL VACC POLYS 25 MCG/0.5 ML VIAL IM ONE (08:00)
[2022-06-27] MEDS: cefTRIAXone 1GM/50ML D5W 50 ML IV SCH (08:43)
[2022-06-27] MEDS: MEMANTINE HCL 5 MG TAB PO SCH (08:44)
[2022-06-27 08:45] LABS: Alkaline Phosphatase 120 U/L (45-117); Anion Gap 8 (5-15); Aspartate Aminotransferase 16 U/L (15-37); BUN/Creatinine Ratio 18.9; Blood Urea Nitrogen 7 mg/dL (7-18); Carbon Dioxide 24 mmol/L (21-32); Chloride 109 mmol/L (98-107); GFR African American 213 mL/min; GFR Non-African American 176 mL/min; Glucose 89 mg/dL (74-106); Sodium 141 mmol/L (136-145)
[2022-06-27 08:46] LABS: Alanine Aminotransferase 13 U/L (13-56); Albumin 2.6 g/dL (3.4-5.0); Calcium 7.5 mg/dL (8.5-10.1); Total Protein 5.6 g/dL (6.4-8.2)
[2022-06-27] MEDS: FAMOTIDINE (10MG/ML) 2ML VL IV SCH (09:27)
[2022-06-27] MEDS: AZITHROMYCIN 500MG/ 250ML 250 ML IV SCH (09:32)
[2022-06-28] MEDS ORDERED: diphenhdrAMINE HCL 50 MG/1 ML VL ONE (01:15)
[2022-06-28] MEDS: diphenhdrAMINE HCL 50 MG/1 ML VL IV PRN ×3 (01:35→20:20)
[2022-06-28 05:00] VITALS: BP 146/70
[2022-06-28] MEDS: SODIUM CHLORIDE 0.9% 1,000 ML IV SCH ×2 (07:00→08:26)
[2022-06-28 08:21] VITALS: BP 143/66
[2022-06-28] MEDS: FAMOTIDINE (10MG/ML) 2ML VL IV SCH (08:23)
[2022-06-28] MEDS: cefTRIAXone 1GM/50ML D5W 50 ML IV SCH (08:24)
[2022-06-28] MEDS: AZITHROMYCIN 500MG/ 250ML 250 ML IV SCH (09:36)
[2022-06-28 12:28] VITALS: BP 161/78
[2022-06-28] MEDS: MEMANTINE HCL 5 MG TAB PO SCH (12:46)
[2022-06-28 17:03] VITALS: BP 133/82
[2022-06-28 22:00] VITALS: BP 147/79
[2022-06-29 05:00] VITALS: BP 148/73
[2022-06-29 06:22] LABS: Basophils # (auto) 0 10 ^3/uL (0-0.2); Basophils % (auto) 0.3 % (0.0-2.0); Eosinophils # (auto) 0.5 10 ^3/uL (0-0.8); Eosinophils % (auto) 7.8 % (0.0-7.0); Hematocrit 41.6 % (36.0-46.0); Hemoglobin 13.9 g/dL (12.2-16.2); Lymphocytes # (auto) 0.6 10 ^3/uL (0.4-5.4); Mean Corpuscular Hemoglobin 29.1 pg (28.0-32.0); Mean Corpuscular Hgb Conc. 33.5 g/dL (32.0-36.0); Mean Corpuscular Volume 86.9 fL (80.0-100.0); Monocytes # (auto) 0.5 10 ^3/uL (0-1.3); Monocytes % (auto) 7.6 % (0.0-12.0); Neutrophils # (auto) 4.7 10 ^3/uL (1.6-8.6); Neutrophils % (auto) 75.3 % (37.0-80.0); Nucleated Red Blood Cells % 0.1 %; Red Blood Cells 4.78 10^6/uL (4.0-5.20); Red Cell Distribution Width 14.7 % (11.8-14.3); White Blood Cell 6.2 10^3/uL (4.4-10.8)
[2022-06-29 06:42] LABS: BUN/Creatinine Ratio 22.5; Calcium 7.7 mg/dL (8.5-10.1); Potassium 3.2 mmol/L (3.5-5.1)
[2022-06-29 09:00] VITALS: BP 154/73
[2022-06-29] MEDS: MEMANTINE HCL 5 MG TAB PO SCH ×2 (09:02→21:41)
[2022-06-29] MEDS: FAMOTIDINE (10MG/ML) 2ML VL IV SCH (09:02)
[2022-06-29] MEDS: AZITHROMYCIN 500MG/ 250ML 250 ML IV SCH (09:05)
[2022-06-29] MEDS: cefTRIAXone 1GM/50ML D5W 50 ML IV SCH (09:05)
[2022-06-29 13:00] VITALS: BP 144/67
[2022-06-29] MEDS ORDERED: POTASSIUM CHL 20 Meq TABLET PO ONE (16:45)
[2022-06-29 17:00] VITALS: BP 134/65
[2022-06-29] MEDS: diphenhdrAMINE HCL 50 MG/1 ML VL IV PRN (21:41)
[2022-06-29 22:00] VITALS: BP 129/64
[2022-06-30 05:00] VITALS: BP 134/53
[2022-06-30 05:37] LABS: Potassium 4.3 mmol/L (3.5-5.1)
[2022-06-30 05:43] LABS: BUN/Creatinine Ratio 24.2; Calcium 7.4 mg/dL (8.5-10.1); Magnesium 1.8 mg/dL (1.6-2.6)
[2022-06-30] MEDS: MEMANTINE HCL 5 MG TAB PO SCH ×3 (06:06→14:27)
[2022-06-30] MEDS: diphenhdrAMINE HCL 50 MG/1 ML VL IV PRN (08:54)
[2022-06-30] MEDS: cefTRIAXone 1GM/50ML D5W 50 ML IV SCH (08:55)
[2022-06-30 09:00] VITALS: BP 131/59
[2022-06-30] MEDS: AZITHROMYCIN 500MG/ 250ML 250 ML IV SCH (10:55)
[2022-06-30] MEDS ORDERED: methylPREDNISolone SOD SUCC 40 MG/ML VL IV ONE (12:00)
[2022-06-30] MEDS ORDERED: LEVO500T31 PO (12:10)
[2022-06-30] MEDS ORDERED: METH4PAK PO (12:10)
[2022-06-30] MEDS ORDERED: hydrALAZINE HCL 25 MG TAB PO ONE (12:30)
[2022-06-30] MEDS ORDERED: hydrALAZINE HCL 20 MG/ML VL IV ONE (12:30)
[2022-06-30 13:00] VITALS: BP 166/83
[2022-06-30 15:42] VITALS: BP 148/83
[2022-06-30 16:16] VITALS: BP 166/83
[2022-06-30 17:00] VITALS: BP 126/63
== END 2022-06-30 19:20 | disposition home health service (06) | DRG 871 ==
LOC: EDBD 15:18 → ER 15:21 → TELE-WESTW 21:59
PROVIDERS: ADMIT Nurse Practitioner Family; ATTEND Internal Medicine
DX: A41.9 Sepsis, unspecified organism (principal); G93.41 Metabolic encephalopathy; J15.6 Pneumonia due to other Gram-negative bacteria; T84.020A Dislocation of internal right hip prosthesis, initial encounter; J44.0 Chronic obstructive pulmonary disease with (acute) lower respiratory infection; N30.00 Acute cystitis without hematuria; D72.829 Elevated white blood cell count, unspecified; F17.200 Nicotine dependence, unspecified, uncomplicated; Z20.822 Contact with and (suspected) exposure to COVID-19; G30.9 Alzheimer's disease, unspecified; F02.80 Dementia in other diseases classified elsewhere, unspecified severity, without behavioral disturbance, psychotic disturbance, mood disturbance, and anxiety; Y79.2 Prosthetic and other implants, materials and accessory orthopedic devices associated with adverse incidents; M06.9 Rheumatoid arthritis, unspecified; T36.8X5A Adverse effect of other systemic antibiotics, initial encounter; Z80.3 Family history of malignant neoplasm of breast; Z82.0 Family history of epilepsy and other diseases of the nervous system; Z83.3 Family history of diabetes mellitus; Z88.1 Allergy status to other antibiotic agents; Y92.89 Other specified places as the place of occurrence of the external cause; Z88.8 Allergy status to other drugs, medicaments and biological substances; Z88.2 Allergy status to sulfonamides; M19.90 Unspecified osteoarthritis, unspecified site
CPT/HCPCS: 36415; 70450; 71045; 71250; 80048; 80053; 81001; 83605; 83735; 83880; 84484; 85025; 87040; 87086; 93005; 96365; 96366; 96368; 99291; G0378; J0696; J3490; P9047